=== PATIENT | female | born 1975 | race Caucasian/White ===

== ENCOUNTER → 2017-03-07 | Outpatient (CLI) | payer OTHER | LOC: CAT 09:31 | DX: R10.32 Left lower quadrant pain (principal); R19.7 Diarrhea, unspecified ==

== ENCOUNTER → 2018-06-05 | Outpatient (CLI) | payer OTHER | LOC: CAT 13:41 | DX: R91.8 Other nonspecific abnormal finding of lung field (principal) ==

== ENCOUNTER → 2018-06-07 | Outpatient (CLI) | payer OTHER ==
[2018-06-07] VITALS (9 sets, daily range): BP systolic 97–127; BP diastolic 59–95
[~2018-06-07] VITALS: Ht 172.7 cm; Wt 88.5 kg
[2018-06-07 10:44] LABS: HEMATOCRIT 40.8 % (37.0-47.0); HEMOGLOBIN 14.1 gm/dL (12.0-15.0); MCH 32.9 pg (26.0-34.0); MCHC 34.5 g/dL (28.0-37.0); MCV 95.5 fL (80.0-100.0); RBC 4.28 mil/uL (4.20-5.00); RDW 12.9 % (10.5-14.5); WBC 4.6 thou/uL (4.0-11.0)
[2018-06-07 10:48] LABS: CREATININE 0.8 mg/dL (0.6-1.0); POTASSIUM 3.4 mmol/L (3.5-5.1)
[2018-06-07 10:50] LABS: APTT 32.2 Seconds (24.5-32.8); PROTIME 10.1 Seconds (9.3-11.4)
--- NOTE | 2018-06-07 13:17 | NUR ---
PT BACK FROM IR, CT MASS BX OF MEDIASTINUM. PT DENIES PAIN, VSS. DRSG C/D/I, WILL CONTINUE TO MONITOR.
--- NOTE | 2018-06-07 14:42 | NUR ---
PATIENTS CXR READ BY DR SINGH, DR SINGH STATED NO PNEUMOTHORAX AND PATIENT STABLE TO D/C HOME
--- NOTE | 2018-06-11 13:08 | PATH ---
[facility] [address] [place] [address] PATHOLOGY RPT PROCEDURE Name: GERI BRAVO Room #: [facility] M.R.#: [id number] ������������������ Admission: 06/07/18 ������������������ Date of : 73 Discharge: Report #: [id number] Path Case #: [id number] [facility] Accession Number: [id number] . 01 Material submitted: . LUNG MASS . 01 Clinical history: . Lung mass . 02 Diagnosis: Tissue designated as "lung mass", needle core biopsy: - Specimen entirely comprised of skeletal muscle and fibroadipose tissue. - No lung parenchyma present. 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 02 Electronically signed: . Celestina Simmons MD, Pathologist NPI- [id number] . 01 Gross description: . Received in formalin labeled "Geri Bravo, biopsy lung mass," are multiple fragments of needle cores of greenberg soft tissue measuring 0.9 x 0.6 x 0.1 cm in aggregate dimensions. The specimen is filtered and entirely submitted in cassette A1. (TSD; 06/07/2018) TOB/TOB . 02 Pathologist provided ICD-10: R91.8 . 02 CPT . 148865 Specimen Comment: A courtesy copy of this report has been sent to Specimen Comment: [phone], , . Specimen Comment: Report sent to ,DR OWUSU / DR LINDSEY Specimen Comment: A duplicate report has been generated due to demographic updates. Performed at: [address], [place], [place] [id number] MD Ishmael Mak MD Phone: [phone] Performed at: [address] [id number] MD Celestina Simmons MD Phone: [phone]
== END | disposition home or self-care (01) ==
LOC: CAT 06:27 → LAB 09:57
PROVIDERS: Radiology Diagnostic Radiology
DX: R91.8 Other nonspecific abnormal finding of lung field (principal); Z79.01 Long term (current) use of anticoagulants

== ENCOUNTER → 2019-07-18 | Outpatient (CLI) | payer OTHER | LOC: NUC 09:24 | DX: M81.0 Age-related osteoporosis without current pathological fracture (principal); E28.39 Other primary ovarian failure ==